=== PATIENT | male | born 1995 | race African-American/Black ===

== ENCOUNTER 2017-03-28 23:10 | Emergency (ER) | payer OTHER ==
[2017-03-29] MEDS ORDERED: NORMAL SALINE 1000 ML 1,000 ML IV ONE ×2 (00:19→01:59)
[2017-03-29 00:39] LABS: ABSOLUTE BASOPHILS # (AUTO) 0.1 10^3/uL (0.0-0.2); ABSOLUTE EOSINOPHILS # (AUTO) 0.3 10^3/uL (0.0-0.6); ABSOLUTE LYMPHOCYTES (AUTO) 2.5 10^3/uL (0.5-4.7); ABSOLUTE MONOCYTES (AUTO) 1.1 10^3/uL (0.1-1.4); BASOPHILS % (AUTO) 0.8 % (0-2); EOSINOPHILS % (AUTO) 3.3 % (0-6); HEMATOCRIT 42.2 % (37.9-51.0); HGB HCT DIFFERENCE -0.2; LYMPHOCYTES % (AUTO) 27.6 % (13-45); MEAN CORPUSCULAR HEMOGLOBIN 30.7 pg (27.0-33.4); MEAN CORPUSCULAR HGB CONC 33.1 g/dL (32.0-36.0); MEAN CORPUSCULAR VOLUME 93 fl (80-97); MONOCYTES % (AUTO) 12.8 % (3-13); RED BLOOD COUNT 4.56 10^6/uL (4.35-5.55); RED CELL DISTRIBUTION WIDTH 13.5 % (11.5-14.0); SEGMENTED NEUTROPHILS % (AUTO) 55.5 % (42-78)
[2017-03-29 00:50] LABS: ALANINE AMINOTRANSFERASE 22 U/L (21-72); ALBUMIN 3.6 g/dL (3.5-5.0); ALKALINE PHOSPHATASE 64 U/L (38-126); ANION GAP 7 (5-19); ASPARTATE AMINO TRANSFERASE 25 U/L (17-59); BILIRUBIN,DIRECT 0.3 mg/dL (0.0-0.4); BILIRUBIN,TOTAL 0.4 mg/dL (0.2-1.3); BLOOD UREA NITROGEN 18 mg/dL (7-20); CALCIUM 8.8 mg/dL (8.4-10.2); CARBON DIOXIDE 29 mmol/L (22-30); CHLORIDE 105 mmol/L (98-107); CREATINE KINASE 160 U/L (55-170); CREATININE RESULT 0.77 mg/dL (0.52-1.25); GLUCOSE 89 mg/dL (75-110); POTASSIUM 4.5 mmol/L (3.6-5.0); SODIUM 140.9 mmol/L (137-145); TOTAL PROTEIN 6.5 g/dL (6.3-8.2)
[2017-03-29 00:51] LABS: ALCOHOL < 10 mg/dL (NONE DETECTED)
--- NOTE | 2017-03-29 01:44 | ER Document Report ---
ED General - General Chief Complaint: Heat Exposure Stated Complaint: CAN'T SLEEP AND HAVING NIGHTMARES SINCE WEDNESDAY Time Seen by Provider: 03/29/17 00:08 Notes: Patient is a 21-year-old male who is brought in by his father because recently for the last several weeks he has not been acting appropriately. He has been unable to sleep and is at times been agitated. Father thought maybe this potential that she has been getting dehydrated at work. He is unsure if the patient has been taking drugs. The patient himself denies any drugs at this time. Patient says that he just wants to be able to sleep. He has no psychiatric history. She has had no trauma to his head. No recent fevers or infections. TRAVEL OUTSIDE OF THE [place] IN LAST 30 DAYS: No - Related Data Allergies/Adverse Reactions: No Known Allergies Allergy (Verified 10/02/16 08:29) Past Medical History - Social History Smoking Status: Unknown if Ever Smoked Frequency of alcohol use: None Drug Abuse: None Family History: Reviewed & Not Pertinent Pulmonary Medical History: Reports: Hx Asthma Renal/ Medical History: Denies: Hx Peritoneal Dialysis - Immunizations Immunizations up to date: Yes Hx Diphtheria, Pertussis, Tetanus Vaccination: Yes Review of Systems - Review of Systems Notes: My Normal Review Basic REVIEW OF SYSTEMS: CONSTITUTIONAL : Denies fever, chills, or sweats. Denies recent illness. EENT: Denies eye, ear, throat, or mouth pain or symptoms. Denies nasal or sinus congestion. CARDIOVASCULAR: Denies chest pain. RESPIRATORY: Denies cough, cold, or chest congestion. Denies shortness of breath, difficulty breathing, or wheezing. GASTROINTESTINAL: Denies abdominal pain. Denies nausea, vomiting, or diarrhea. Denies constipation. Last BM: GENITOURINARY: Denies difficulty urinating, painful urination, burning, frequency, or blood in urine. MUSCULOSKELETAL: Denies neck or back pain or joint pain or swelling. SKIN: Denies rash or skin lesions. NEUROLOGICAL: Denies altered mental status or loss of consciousness. Denies headache. Denies weakness or paralysis or loss of use of either side. Denies problems with gait or speech. Denies sensory or motor loss. PSYCHIATRIC: Denies anxiety or stress or depression. ALL OTHER SYSTEMS REVIEWED AND NEGATIVE. Physical Exam - Vital signs Vitals: Temp Pulse Resp BP Pulse Ox 98.1 F 66 16 100/50 L 94 03/28/17 23:16 03/28/17 23:16 03/28/17 23:16 03/28/17 23:16 03/28/17 23:16 - Notes Notes: General Appearance: Well nourished, alert, cooperative, no acute distress, no obvious discomfort. Patient slightly agitated and fidgety. He continues to say "i just want to be able to sleep". Vitals: reviewed, See vital signs table. Head: no swelling or tenderness to the head Eyes: PERRL, EOMI, Conjuctiva clear Mouth: No decreasd moisture Neck: Supple, no neck tenderness, No thyromegaly Lungs: No wheezing, No rales, No rhonci, No accessory muscle use, good air exchange bilaterally. Heart: Normal rate, Regular rythm, No murmur, no rub Abdomen: Normal BS, soft, No rigidity, No abdominal tenderness, No guarding, no rebound, no abdominal masses, no organomegaly Extremities: strength 5/5 in all extremities, good pulses in all extremities, no swelling or tenderness in the extremities, no edema. Skin: warm, dry, appropriate color, no rash Neuro: speech clear, oriented x 3, normal affect, responds appropriately to questions. Cranial nerves II through XII are intact. Distal sensation intact. Patient has no focal neurologic deficits on exam. Good strength in all 4 extremities. Course - Re-evaluation Re-evalutation: 03/29/17 05:35 Patient's urinalysis was positive for cocaine as well as amphetamines. This makes perfect sense with symptoms that he has been having. I did ask the patient is okay if I call his father informed him of the lab results. Patient said that he did not care who I told him about his lab results. I did call his father and informed him of the findings. 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 Patient to return to ER if he has worsening or further concerns. I strongly encouraged him to follow-up with drug rehab resources that have included in his discharge paperwork. I informed Parminder that if he continues to use cocaine or amphetamines that he will only get worse, he will have continued difficulty sleeping, he will continue to become agitated, and could potentially have a heart attack or stroke. Dictation of this chart was performed using voice recognition software; therefore, there may be some unintended grammatical errors. - Vital Signs Vital signs: Temp Pulse Resp BP Pulse Ox 98.1 F 66 14 100/70 100 03/28/17 23:16 03/28/17 23:16 03/29/17 06:07 03/29/17 06:07 03/29/17 06:07 - Laboratory Result Diagrams: 03/29/17 00:10 03/29/17 00:10 Laboratory results interpreted by me: 03/29/17 03/29/17 00:10 04:04 Urine Protein 100 H Salicylates < 1.0 L Acetaminophen < 10 L - EKG Interpretation by Me Additional EKG results interpreted by me: 03/29/17 01:44 EKG is reviewed and interpreted by me. EKG shows sinus rhythm with rate 54 bpm. Patient has concave up ST segment elevation consistent with early repolarization abnormality. No reciprocal ST segment depression. VT interval, QRS duration, QTc intervals are within normal range. Old EKG for comparison is from February 22, 2015. - Transfer of Care Notes: 03/29/17 07:03 Patient struck screen showed evidence of cocaine as well as amphetamines. This would make sense with his presentation and his recent history. I did ask the patient if it is okay that I speak with his father about his test results. Patient told me "I do not care". All his father informed him of the findings and how this most likely would explain the weight is son is been acting. Father is very appreciative of this. I will discharge him home with referral and resources to [facility]. Dictation of this chart was performed using voice recognition software; therefore, there may be some unintended grammatical errors. Discharge - Discharge Clinical Impression: Cocaine abuse, Amphetamine abuse Insomnia Qualifiers: Insomnia type: drug-induced Qualified Code(s): F19.982 - Other psychoactive substance use, unspecified with psychoactive substance-induced sleep disorder Condition: Good Disposition: HOME, SELF-CARE Additional Instructions: You probably cannot sleep because of the cocaine and amphetamines in her system. These drugs are very dangerous. They can cause strokes and heart attacks. They can cause you to have difficulty sleeping and make you feel very easily agitated and at times confused. It is very important that you stop taking these drugs. You are welcome to return to the ER at anytime if you feel that your symptoms are worsening or if you feel that you need further help. I have included information to [facility] and [facility] which are local resources to help with drug addiction.
--- NOTE | 2017-03-29 02:15 | RADIOLOGY REPORT (SQ) ---
EXAM DESCRIPTION: CT HEAD WITHOUT COMPLETED DATE/TIME: 03/29/2017 1:52 am REASON FOR STUDY: altered mental status COMPARISON: 02/22/2017. TECHNIQUE: Axial images acquired through the brain without intravenous contrast. Images reviewed wi th bone, brain and subdural windows. Images stored on PACS. All CT scanners at this facility use dose modulation, iterative reconstruction, and/or weight based d osing when appropriate to reduce radiation dose to as low as reasonably achievable (ALARA). [facility]: Dose Right [facility]: CareDose [facility]: Dose Right [facility]: Teradose 4D [facility]: Smart [employer] RADIATION DOSE: Up-to-date CT equipment and radiation dose reduction techniques were employed. CTDIv ol: 64.6 mGy. DLP: 1163 mGy-cm. mGy. LIMITATIONS: None. FINDINGS: VENTRICLES: Normal size and contour. CEREBRUM: No masses. No hemorrhage. No midline shift. Normal levin/white matter differentiation. N o evidence for acute infarction. CEREBELLUM: No masses. No hemorrhage. No alteration of density. No evidence for acute infarction. EXTRAAXIAL SPACES: No fluid collections. No masses. ORBITS AND GLOBE: No intra- or extraconal masses. Normal contour of globe without masses. CALVARIUM: No fracture. PARANASAL SINUSES: No fluid or mucosal thickening. SOFT TISSUES: No mass or hematoma. OTHER: No other significant finding. IMPRESSION: NORMAL BRAIN CT WITHOUT CONTRAST. TECHNICAL DOCUMENTATION: JOB ID: [id number] Quality ID # [id number]: Final reports with documentation of one or more dose reduction techniques (e.g., Au tomated exposure control, adjustment of the mA and/or kV according to patient size, use of iterative reconstruction technique) 2010 [employer]- All Rights Reserved
[2017-03-29 04:45] LABS: APPEARANCE,URINE CLEAR; BILIRUBIN,URINE NEGATIVE (NEGATIVE); GLUCOSE, URINE NEGATIVE (NEGATIVE); KETONES,URINE NEGATIVE (NEGATIVE); LEUKOCYTE ESTERASE,URINE NEGATIVE (NEGATIVE); NITRITE,URINE NEGATIVE (NEGATIVE); PROTEIN,URINE 100 mg/dL (NEGATIVE); URINE SPECIFIC GRAVITY 1.032; UROBILINOGEN,URINE NEGATIVE mg/dL (<2.0)
[2017-03-29 04:47] LABS: RBC,URINE RARE /HPF; WBC,URINE RARE /HPF
[2017-03-29 04:55] LABS: URINE BARBITURATES SCREEN NEGATIVE; URINE METHADONE SCREEN NEGATIVE; URINE OPIATES LOW UNCONFIRMED POSITIVE; URINE PHENCYCLIDINE SCREEN NEGATIVE
[2017-03-29 06:12] VITALS: BP 100/70
--- NOTE | 2017-03-29 08:40 | EKG REPORT ---
SEVERITY:- ABNORMAL ECG - SINUS RHYTHM PROBABLE LEFT VENTRICULAR HYPERTROPHY : Confirmed by: Bret Veliz 29-Mar-2017 08:39:19
--- NOTE | 2017-03-29 09:05 | EKG REPORT ---
SEVERITY:- ABNORMAL ECG - SINUS RHYTHM PROBABLE LEFT VENTRICULAR HYPERTROPHY ST ELEV, PROBABLE NORMAL EARLY REPOL PATTERN : Confirmed on behalf of: Bret Veliz 29-Mar-2017 09:05:03
== END 2017-03-29 06:12 | disposition home or self-care (01) ==
LOC: ER 23:10
DX: F15.182 Other stimulant abuse with stimulant-induced sleep disorder (principal); F14 Cocaine related disorders; J45.909 Unspecified asthma, uncomplicated; R45.1 Restlessness and agitation
CPT/HCPCS: 93005 ×2; 99285; 96360; 96361; 51701; 36415; 80307 ×4; 82550; 85025; 80053; 81001; 70450; 93010 ×2; J7030